=== PATIENT | male | born 1970 | race Caucasian/White ===

== ENCOUNTER → 2017-12-14 | Emergency (ER) | payer MEDICAID ==
[~2017-12-14] VITALS: Ht 182.9 cm; Wt 95.2 kg
[~2017-12-14] MED LIST: CYCLOBENZAPRINE10 MG PO; DAYPRO600 MG PO; DICLOFENAC SODI75 MG PO; IBUPROFEN600 MG PO; MOBIC15 MG PO; NEURONTIN100 MG PO; NORCO 5-325 TA1 EACH PO; OXYCODONE HCL15 MG PO; OXYCODONE HCL5 MG PO; PRILOSEC20 MG PO; PROAIR HFA8.5 GM INH
== END ==
LOC: ED 19:07
DX: S46.912A Strain of unspecified muscle, fascia and tendon at shoulder and upper arm level, left arm, initial encounter (principal); F17.200 Nicotine dependence, unspecified, uncomplicated; Z98.890 Other specified postprocedural states; Z88.0 Allergy status to penicillin; Z79.899 Other long term (current) drug therapy; X50.9XXA Other and unspecified overexertion or strenuous movements or postures, initial encounter
CPT/HCPCS: 73030; 99283